=== PATIENT | female | born 1965 | race Two or more races ===

== ENCOUNTER 2017-08-29 14:46 | Inpatient (IN) | payer OTHER ==
[~2017-08-29] VITALS: Ht 160 cm; Wt 73.9 kg
[~2017-08-29 14:46] MED LIST: BENA20TA2 PO; INSU100V27 SQ; INSU3INS6 SQ; METF500T4 PO; SERT50TA12 PO; SIMV20TA6 PO; WARF5TAB77 PO
[2017-08-29] MEDS ORDERED: IV NS 0.9% 1,000 ML BAG IV ONE (15:00)
[2017-08-29] MEDS ORDERED: LEVOFLOXACIN 750 MG /D5W 150ML PIGGYBACK IV ONE (15:00)
[2017-08-29] MEDS ORDERED: VANCOMYCIN 1 GM in IV D5W 250 ML IV ONE (15:00)
[2017-08-29] MEDS ORDERED: LEVOFLOXACIN 750 MG /D5W 150ML 150 ML IV ONE (15:18)
[2017-08-29 15:35] LABS: BASOPHILS # (AUTO) 0.1 /CMM (0.0-0.2); BASOPHILS % (AUTO) 1.6 % (0.0-2.0); EOSINOPHILS % (AUTO) 0.4 % (0.0-6.0); HEMATOCRIT 33 % (33-45); HEMOGLOBIN 10.4 g/dL (11.5-14.8); LYMPHOCYTES # (AUTO) 0.6 /CMM (0.8-4.8); LYMPHOCYTES % (AUTO) 6.7 % (20.0-44.0); MEAN CORPUSCULAR HEMOGLOBIN 23 PG (26.0-33.0); MEAN CORPUSCULAR HGB CONC 31 g/dl (31.0-36.0); MEAN CORPUSCULAR VOLUME 74 fL (82-100); MONOCYTES # (AUTO) 0.3 /CMM (0.1-1.30); MONOCYTES % (AUTO) 3.2 % (2.0-12.0); NEUTROPHILS # (AUTO) 8.1 /CMM (1.8-8.9); NEUTROPHILS % (AUTO) 88.1 % (43.0-81.0); PLATELET COUNT (AUTO) 301 /CMM (150-450); RDW COEFFICIENT OF VARIATION 15.6 (11.5-15.0); RED BLOOD CELL COUNT(AUTO) 4.49 MIL/uL (4.0-5.2); WHITE BLOOD COUNT (AUTO) 9.1 K/uL (4.3-11.0)
[2017-08-29 15:45] LABS: CALCIUM, SERUM 9.5 mg/dL (8.5-10.1); POTASSIUM 4.5 mmol/L (3.5-5.1)
[2017-08-29 15:49] LABS: INR 1.03 (0.87-1.13); PROTHROMBIN TIME 10.7 SECS (9.5-12.7)
[2017-08-29 15:51] LABS: ALBUMIN 2.4 g/dL (3.4-5.0); BILIRUBIN,DIRECT 0.2 mg/dL (0.0-0.2); BILIRUBIN,TOTAL 0.5 mg/dL (0.2-1.0); TOTAL PROTEIN, SERUM 8.9 g/dL (6.4-8.2)
[2017-08-29] MEDS ORDERED: GABA-532 PO (16:21)
[2017-08-29] MEDS ORDERED: MAG HYDROX/AL HYDROX/SIMETH 30 ML UDC PO PRN (17:30)
[2017-08-29] MEDS ORDERED: ONDANSETRON HCL/PF 4 MG/2 ML VIAL IVP PRN (17:30)
[2017-08-29] MEDS ORDERED: ZOLPIDEM TARTRATE 5 MG TABLET PO PRN (17:30)
[2017-08-29] MEDS ORDERED: HYDROCODONE/APAP 5/325MG 1 EACH TABLET PO PRN (17:30)
[2017-08-29] MEDS ORDERED: MAGNESIUM HYDROXIDE 30 ML UDC PO PRN (17:30)
[2017-08-29] MEDS ORDERED: Z GUARD REMEDY 2 OZ OINT TP PRN (17:30)
[2017-08-29] MEDS ORDERED: DEXTROSE 50%-WATER 50 ML DISP.SYRIN IV PRN (17:30)
[2017-08-29] MEDS ORDERED: FEE PK DOSING 1 MIN EA MC ONE (17:54)
[2017-08-29 18:20] VITALS: BP 129/81
[2017-08-29] MEDS: BLOOD SUGAR DIAGNOSTIC 1 EACH STRIP VI SCH ×2 (18:21→21:16)
[2017-08-29] MEDS: INSULIN REGULAR, HUMAN 100 UNIT/ML 3 ML VIAL SQ PRN (18:57)
[2017-08-29] MEDS: IV NS 0.9% 1,000 ML IV PRN (18:58)
[2017-08-29] MEDS: ACETAMINOPHEN 325 MG TABLET PO PRN (18:59)
[2017-08-29] MEDS: HYDROCODONE/APAP 10/325MG 1 EA TABLET PO PRN (19:00)
[2017-08-29 20:26] VITALS: BP 130/58
[2017-08-29] MEDS: ENOXAPARIN SODIUM 80 MG/0.8 ML DISP.SYRIN SQ SCH (20:55)
[2017-08-29] MEDS: AZTREONAM 1 G in IV NS 0.9% 100 ML IV SCH (20:56)
[2017-08-29] MEDS ORDERED: LIDOCAINE 1% INJ 50 ML MDV IJ ONE ×2 (21:30→21:42)
[2017-08-29] MEDS: *INSULIN REGULAR(HUMULIN R)HUM 100 UNIT/ML VIAL SQ PRN (21:35)
[2017-08-29] MEDS ORDERED: INSULIN GLARGINE, 100 UNIT/ML CARTRIDGE SQ SCH (22:00)
[2017-08-29] MEDS ORDERED: INSULIN DETEMIR 100 UNIT/ML CARTRIDGE SQ ONE (23:00)
[2017-08-29] MEDS: INSULIN DETEMIR 100 UNIT/ML CARTRIDGE SQ SCH (23:09)
[2017-08-30] MEDS: VANCOMYCIN 1 GM in IV D5W 250 ML IV SCH ×2 (03:20→15:20)
[2017-08-30] MEDS: AZTREONAM 1 G in IV NS 0.9% 100 ML IV SCH ×2 (05:12→12:55)
[2017-08-30] MEDS: BLOOD SUGAR DIAGNOSTIC 1 EACH STRIP VI SCH ×4 (06:14→22:12)
[2017-08-30 07:02] LABS: BASOPHILS % (AUTO) 0.5 % (0.0-2.0); EOSINOPHILS % (AUTO) 0.4 % (0.0-6.0); HEMATOCRIT 28 % (33-45); HEMOGLOBIN 8.8 g/dL (11.5-14.8); LYMPHOCYTES # (AUTO) 0.6 /CMM (0.8-4.8); LYMPHOCYTES % (AUTO) 8.2 % (20.0-44.0); MEAN CORPUSCULAR HEMOGLOBIN 23 PG (26.0-33.0); MEAN CORPUSCULAR HGB CONC 31 g/dl (31.0-36.0); MEAN CORPUSCULAR VOLUME 76 fL (82-100); MONOCYTES # (AUTO) 0.3 /CMM (0.1-1.30); MONOCYTES % (AUTO) 3.5 % (2.0-12.0); NEUTROPHILS # (AUTO) 6.7 /CMM (1.8-8.9); NEUTROPHILS % (AUTO) 87.4 % (43.0-81.0); PLATELET COUNT (AUTO) 253 /CMM (150-450); RDW COEFFICIENT OF VARIATION 17.1 (11.5-15.0); RED BLOOD CELL COUNT(AUTO) 3.77 MIL/uL (4.0-5.2); WHITE BLOOD COUNT (AUTO) 7.7 K/uL (4.3-11.0)
[2017-08-30 07:20] LABS: INR 1.09 (0.87-1.13); PROTHROMBIN TIME 11.3 SECS (9.5-12.7)
[2017-08-30 07:24] LABS: CALCIUM, SERUM 8.3 mg/dL (8.5-10.1); CREATININE 0.9 mg/dL (0.6-1.3); PHOSPHORUS 2.9 mg/dL (2.5-4.9); POTASSIUM 4.1 mmol/L (3.5-5.1)
[2017-08-30 07:32] LABS: THYROID STIMULATING HORMONE 0.565 uIU/mL (0.358-3.74)
[2017-08-30 07:43] LABS: MAGNESIUM 1.2 mg/dL (1.8-2.4)
[2017-08-30 08:00] VITALS: BP 131/69
[2017-08-30] MEDS: ENOXAPARIN SODIUM 80 MG/0.8 ML DISP.SYRIN SQ SCH ×2 (09:00→20:15)
[2017-08-30] MEDS ORDERED: BUPIVACAINE 0.5 % PF 150 MG/30 ML VIAL ONE (09:31)
[2017-08-30] MEDS ORDERED: LIDOCAINE 1% INJ 50 ML MDV IJ ONE (09:31)
[2017-08-30] MEDS ORDERED: BACITRACIN 50000 UNITS/VIAL ONE (09:32)
[2017-08-30] MEDS ORDERED: FENTANYL PF 100MCG/2ML AMPUL ONE (09:32)
[2017-08-30] MEDS ORDERED: MIDAZOLAM HCL 2 MG/2ML VIAL ONE (09:33)
[2017-08-30] MEDS: Magnesium 1GM/D5W 100ML PREMIX 100 ML IV SCH ×4 (11:11→15:18)
[2017-08-30] MEDS: BENAZEPRIL HCL 20 MG TABLET PO SCH (11:19)
[2017-08-30] MEDS: GABAPENTIN 100 MG CAPSULE PO SCH ×3 (11:19→18:14)
[2017-08-30] MEDS: METFORMIN 500 MG TABLET PO SCH ×2 (11:19→18:14)
[2017-08-30] MEDS: SERTRALINE HCL 50 MG TABLET PO SCH (11:19)
[2017-08-30] MEDS: SIMVASTATIN 20 MG TABLET PO SCH (11:19)
[2017-08-30] MEDS: INSULIN REGULAR, HUMAN 100 UNIT/ML 3 ML VIAL SQ PRN ×2 (14:18→18:19)
[2017-08-30 16:00] VITALS: BP 129/70
[2017-08-30] MEDS: LACTOBACILLUS RHAMNOSUS GG 1 EACH CAP.SPRINK PO SCH (18:14)
[2017-08-30] MEDS: WARFARIN SODIUM 5 MG TABLET PO SCH (18:23)
[2017-08-30] MEDS: IV NS 0.9% 1,000 ML IV PRN (18:49)
[2017-08-30] MEDS: HYDROCODONE/APAP 10/325MG 1 EA TABLET PO PRN (18:59)
[2017-08-30 20:00] VITALS: BP 136/56
[2017-08-30] MEDS: MEROPENEM 1 G in IV NS 0.9% 100 ML IV SCH (20:14)
[2017-08-30] MEDS: ACETAMINOPHEN 325 MG TABLET PO PRN (20:14)
[2017-08-30] MEDS: *INSULIN REGULAR(HUMULIN R)HUM 100 UNIT/ML VIAL SQ PRN (22:16)
[2017-08-30] MEDS: INSULIN DETEMIR 100 UNIT/ML CARTRIDGE SQ SCH (22:16)
[2017-08-31] VITALS (10 sets, daily range): BP systolic 102–130; BP diastolic 50–90
[2017-08-31] MEDS: VANCOMYCIN 1 GM in IV D5W 250 ML IV SCH (03:18)
[2017-08-31] MEDS: HYDROCODONE/APAP 10/325MG 1 EA TABLET PO PRN ×5 (04:00→22:05)
[2017-08-31] MEDS: MEROPENEM 1 G in IV NS 0.9% 100 ML IV SCH (05:14)
[2017-08-31] MEDS: BLOOD SUGAR DIAGNOSTIC 1 EACH STRIP VI SCH ×4 (06:47→21:43)
[2017-08-31] MEDS: INSULIN REGULAR, HUMAN 100 UNIT/ML 3 ML VIAL SQ PRN ×2 (06:50→12:31)
[2017-08-31 08:09] LABS: CALCIUM, SERUM 7.9 mg/dL (8.5-10.1); CREATININE 0.7 mg/dL (0.6-1.3); POTASSIUM 3.3 mmol/L (3.5-5.1)
[2017-08-31 08:30] LABS: BASOPHILS % (AUTO) 0.3 % (0.0-2.0); EOSINOPHILS # (AUTO) 0.1 /CMM (0.0-0.7); HEMATOCRIT 22 % (33-45); LYMPHOCYTES # (AUTO) 0.9 /CMM (0.8-4.8); LYMPHOCYTES % (AUTO) 17.4 % (20.0-44.0); MEAN CORPUSCULAR HEMOGLOBIN 23 PG (26.0-33.0); MEAN CORPUSCULAR HGB CONC 31 g/dl (31.0-36.0); MEAN CORPUSCULAR VOLUME 75 fL (82-100); MONOCYTES # (AUTO) 0.4 /CMM (0.1-1.30); MONOCYTES % (AUTO) 7.2 % (2.0-12.0); NEUTROPHILS % (AUTO) 74.1 % (43.0-81.0); PLATELET COUNT (AUTO) 207 /CMM (150-450); RDW COEFFICIENT OF VARIATION 17.3 (11.5-15.0); RED BLOOD CELL COUNT(AUTO) 3.01 MIL/uL (4.0-5.2); WHITE BLOOD COUNT (AUTO) 5.4 K/uL (4.3-11.0)
[2017-08-31] MEDS ORDERED: POTASSIUM CHLORIDE 20 MEQ TAB.PRT.SR PO ONE (09:00)
[2017-08-31] MEDS: ENOXAPARIN SODIUM 80 MG/0.8 ML DISP.SYRIN SQ SCH (09:00)
[2017-08-31] MEDS: SERTRALINE HCL 50 MG TABLET PO SCH (09:04)
[2017-08-31] MEDS: GABAPENTIN 100 MG CAPSULE PO SCH ×3 (09:04→17:09)
[2017-08-31] MEDS: METFORMIN 500 MG TABLET PO SCH ×2 (09:04→17:08)
[2017-08-31] MEDS: LACTOBACILLUS RHAMNOSUS GG 1 EACH CAP.SPRINK PO SCH ×2 (09:04→17:09)
[2017-08-31] MEDS: SIMVASTATIN 20 MG TABLET PO SCH (09:04)
[2017-08-31] MEDS: BENAZEPRIL HCL 20 MG TABLET PO SCH (09:13)
[2017-08-31] MEDS ORDERED: POTASSIUM CHLORIDE 20 MEQ TAB.PRT.SR PO SCH (11:00)
[2017-08-31] MEDS ORDERED: VANCOMYCIN 1 GM in IV D5W 250 ML IV SCH (13:00)
[2017-08-31] MEDS ORDERED: CEFTRIAXONE 1 G VIAL IM SCH (15:00)
[2017-08-31] MEDS: IV NS 0.9% 1,000 ML IV PRN (15:15)
[2017-08-31] MEDS: METRONIDAZOLE 500MG/ NS 100ML 500 MG in PREMIX 1 EA IV SCH ×2 (15:59→22:04)
[2017-08-31] MEDS: SOD FERRIC GLUC 125 MG in IV NS 0.9% 100 ML IV SCH (16:26)
[2017-08-31] MEDS: WARFARIN SODIUM 5 MG TABLET PO SCH (17:00)
[2017-08-31] MEDS: CEFTRIAXONE 1 G in IV D5W 50 ML IV SCH (17:11)
[2017-08-31 17:35] LABS: BASOPHILS % (AUTO) 0.3 % (0.0-2.0); EOSINOPHILS # (AUTO) 0.1 /CMM (0.0-0.7); EOSINOPHILS % (AUTO) 1.5 % (0.0-6.0); HEMATOCRIT 34 % (33-45); HEMOGLOBIN 10.5 g/dL (11.5-14.8); LYMPHOCYTES # (AUTO) 1.2 /CMM (0.8-4.8); LYMPHOCYTES % (AUTO) 17.4 % (20.0-44.0); MEAN CORPUSCULAR HEMOGLOBIN 24 PG (26.0-33.0); MEAN CORPUSCULAR HGB CONC 31 g/dl (31.0-36.0); MEAN CORPUSCULAR VOLUME 77 fL (82-100); MONOCYTES # (AUTO) 0.4 /CMM (0.1-1.30); MONOCYTES % (AUTO) 5.5 % (2.0-12.0); NEUTROPHILS # (AUTO) 5.3 /CMM (1.8-8.9); NEUTROPHILS % (AUTO) 75.3 % (43.0-81.0); PLATELET COUNT (AUTO) 261 /CMM (150-450); RDW COEFFICIENT OF VARIATION 17.8 (11.5-15.0); RED BLOOD CELL COUNT(AUTO) 4.41 MIL/uL (4.0-5.2)
[2017-08-31] MEDS: ACETAMINOPHEN 325 MG TABLET PO PRN (19:58)
[2017-08-31] MEDS: *INSULIN REGULAR(HUMULIN R)HUM 100 UNIT/ML VIAL SQ PRN (21:47)
[2017-08-31] MEDS: INSULIN DETEMIR 100 UNIT/ML CARTRIDGE SQ SCH (21:50)
[2017-09-01] VITALS (9 sets, daily range): BP systolic 111–155; BP diastolic 50–80
[2017-09-01] MEDS: HYDROCODONE/APAP 10/325MG 1 EA TABLET PO PRN ×4 (02:52→21:22)
[2017-09-01] MEDS: IV NS 0.9% 1,000 ML IV PRN (04:24)
[2017-09-01] MEDS: METRONIDAZOLE 500MG/ NS 100ML 500 MG in PREMIX 1 EA IV SCH ×3 (04:51→21:27)
[2017-09-01] MEDS: BLOOD SUGAR DIAGNOSTIC 1 EACH STRIP VI SCH ×4 (06:15→21:31)
[2017-09-01] MEDS: INSULIN REGULAR, HUMAN 100 UNIT/ML 3 ML VIAL SQ PRN ×2 (06:36→12:21)
[2017-09-01 07:19] LABS: BASOPHILS % (AUTO) 0.2 % (0.0-2.0); EOSINOPHILS # (AUTO) 0.1 /CMM (0.0-0.7); EOSINOPHILS % (AUTO) 1.6 % (0.0-6.0); HEMATOCRIT 25 % (33-45); HEMOGLOBIN 7.9 g/dL (11.5-14.8); LYMPHOCYTES # (AUTO) 1.1 /CMM (0.8-4.8); LYMPHOCYTES % (AUTO) 19.6 % (20.0-44.0); MEAN CORPUSCULAR HEMOGLOBIN 24 PG (26.0-33.0); MEAN CORPUSCULAR HGB CONC 32 g/dl (31.0-36.0); MEAN CORPUSCULAR VOLUME 76 fL (82-100); MONOCYTES # (AUTO) 0.4 /CMM (0.1-1.30); MONOCYTES % (AUTO) 6.6 % (2.0-12.0); NEUTROPHILS # (AUTO) 4.1 /CMM (1.8-8.9); PLATELET COUNT (AUTO) 226 /CMM (150-450); RDW COEFFICIENT OF VARIATION 17.6 (11.5-15.0); RED BLOOD CELL COUNT(AUTO) 3.26 MIL/uL (4.0-5.2); WHITE BLOOD COUNT (AUTO) 5.7 K/uL (4.3-11.0)
[2017-09-01 07:34] LABS: ALBUMIN 1.5 g/dL (3.4-5.0); BILIRUBIN,TOTAL 0.3 mg/dL (0.2-1.0); CALCIUM, SERUM 8.2 mg/dL (8.5-10.1); CREATININE 0.6 mg/dL (0.6-1.3); MAGNESIUM 1.6 mg/dL (1.8-2.4); PHOSPHORUS 3.2 mg/dL (2.5-4.9); POTASSIUM 4.1 mmol/L (3.5-5.1); TOTAL PROTEIN, SERUM 6.6 g/dL (6.4-8.2)
[2017-09-01] MEDS ORDERED: Magnesium 1GM/D5W 100ML PREMIX PIGGYBACK IV ONE (08:00)
[2017-09-01] MEDS ORDERED: Magnesium 1GM/D5W 100ML PREMIX 100 ML IV SCH (08:30)
[2017-09-01] MEDS: BENAZEPRIL HCL 20 MG TABLET PO SCH (08:59)
[2017-09-01] MEDS: LACTOBACILLUS RHAMNOSUS GG 1 EACH CAP.SPRINK PO SCH ×2 (08:59→17:02)
[2017-09-01] MEDS: SERTRALINE HCL 50 MG TABLET PO SCH (08:59)
[2017-09-01] MEDS: METFORMIN 500 MG TABLET PO SCH ×2 (08:59→17:02)
[2017-09-01] MEDS: ASCORBIC ACID 500 MG TABLET PO SCH (08:59)
[2017-09-01] MEDS: SIMVASTATIN 20 MG TABLET PO SCH (08:59)
[2017-09-01] MEDS: GABAPENTIN 100 MG CAPSULE PO SCH ×3 (08:59→17:02)
[2017-09-01] MEDS: MULTIVITAMINS,THERAGRAN 1 UDTAB TABLET PO SCH (09:00)
[2017-09-01] MEDS: ENOXAPARIN SODIUM 80 MG/0.8 ML DISP.SYRIN SQ SCH ×2 (09:04→21:41)
[2017-09-01 12:22] LABS: INR 1.03 (0.87-1.13)
[2017-09-01 12:23] LABS: PROTHROMBIN TIME 10.7 SECS (9.5-12.7)
[2017-09-01] MEDS: SOD FERRIC GLUC 125 MG in IV NS 0.9% 100 ML IV SCH (13:13)
[2017-09-01] MEDS: CEFTRIAXONE 1 G in IV D5W 50 ML IV SCH (17:02)
[2017-09-01] MEDS: WARFARIN SODIUM 5 MG TABLET PO SCH (17:03)
[2017-09-01] MEDS: INSULIN DETEMIR 100 UNIT/ML CARTRIDGE SQ SCH (21:35)
[2017-09-02] MEDS: IV NS 0.9% 1,000 ML IV PRN (02:44)
[2017-09-02] MEDS: HYDROCODONE/APAP 10/325MG 1 EA TABLET PO PRN ×4 (04:31→17:37)
[2017-09-02] MEDS: METRONIDAZOLE 500MG/ NS 100ML 500 MG in PREMIX 1 EA IV SCH (04:32)
[2017-09-02] MEDS: BLOOD SUGAR DIAGNOSTIC 1 EACH STRIP VI SCH ×4 (06:16→21:27)
[2017-09-02] MEDS: INSULIN REGULAR, HUMAN 100 UNIT/ML 3 ML VIAL SQ PRN ×3 (06:21→17:26)
[2017-09-02 06:48] LABS: INR 1.26 (0.87-1.13); PROTHROMBIN TIME 13.1 SECS (9.5-12.7)
[2017-09-02 07:01] LABS: BASOPHILS % (AUTO) 0.4 % (0.0-2.0); EOSINOPHILS # (AUTO) 0.1 /CMM (0.0-0.7); EOSINOPHILS % (AUTO) 1.1 % (0.0-6.0); HEMATOCRIT 28 % (33-45); HEMOGLOBIN 8.8 g/dL (11.5-14.8); LYMPHOCYTES # (AUTO) 0.8 /CMM (0.8-4.8); LYMPHOCYTES % (AUTO) 13.3 % (20.0-44.0); MEAN CORPUSCULAR HEMOGLOBIN 25 PG (26.0-33.0); MEAN CORPUSCULAR HGB CONC 31 g/dl (31.0-36.0); MEAN CORPUSCULAR VOLUME 79 fL (82-100); MONOCYTES # (AUTO) 0.4 /CMM (0.1-1.30); NEUTROPHILS # (AUTO) 4.7 /CMM (1.8-8.9); NEUTROPHILS % (AUTO) 79.2 % (43.0-81.0); PLATELET COUNT (AUTO) 232 /CMM (150-450); RDW COEFFICIENT OF VARIATION 18.1 (11.5-15.0); RED BLOOD CELL COUNT(AUTO) 3.56 MIL/uL (4.0-5.2); WHITE BLOOD COUNT (AUTO) 5.9 K/uL (4.3-11.0)
[2017-09-02 07:02] LABS: CALCIUM, SERUM 8.3 mg/dL (8.5-10.1); CREATININE 0.6 mg/dL (0.6-1.3); POTASSIUM 3.5 mmol/L (3.5-5.1)
[2017-09-02 08:00] VITALS: BP 121/71
[2017-09-02 08:06] LABS: IMMUNOGLOBULIN A, SERUM 559 mg/dL (87-352); IMMUNOGLOBULIN G, SERUM 1309 mg/dL (700-1600); IMMUNOGLOBULIN M, SERUM 149 mg/dL (26-217)
[2017-09-02] MEDS: LACTOBACILLUS RHAMNOSUS GG 1 EACH CAP.SPRINK PO SCH ×2 (08:34→17:02)
[2017-09-02] MEDS: METFORMIN 500 MG TABLET PO SCH ×2 (08:34→17:02)
[2017-09-02] MEDS: ASCORBIC ACID 500 MG TABLET PO SCH (08:34)
[2017-09-02] MEDS: SERTRALINE HCL 50 MG TABLET PO SCH (08:35)
[2017-09-02] MEDS: SIMVASTATIN 20 MG TABLET PO SCH (08:35)
[2017-09-02] MEDS: GABAPENTIN 100 MG CAPSULE PO SCH ×3 (08:35→17:03)
[2017-09-02] MEDS: BENAZEPRIL HCL 20 MG TABLET PO SCH (08:35)
[2017-09-02] MEDS: ENOXAPARIN SODIUM 80 MG/0.8 ML DISP.SYRIN SQ SCH (08:55)
[2017-09-02] MEDS: MULTIVITAMINS,THERAGRAN 1 UDTAB TABLET PO SCH (08:56)
[2017-09-02] MEDS ORDERED: DAKINS HALF STRENGTH (0.25%) 480 ML BOTTLE TOP SCH (09:00)
[2017-09-02] MEDS: METRONIDAZOLE 500 MG TABLET PO SCH ×2 (12:51→21:30)
[2017-09-02] MEDS: SOD FERRIC GLUC 125 MG in IV NS 0.9% 100 ML IV SCH (13:23)
[2017-09-02] MEDS: CEFTRIAXONE 1 G in IV D5W 50 ML IV SCH (15:05)
[2017-09-02] MEDS: WARFARIN SODIUM 5 MG TABLET PO SCH (17:02)
[2017-09-02 20:00] VITALS: BP 106/60
[2017-09-03 09:13] LABS: HOMOCYSTEINE, PLASMA 8.9 umol/L (0.0-15.0)
[2017-09-03 11:13] LABS: *SPE A/G RATIO 0.5 (0.7-1.7); *SPE ALBUMIN 1.8 g/dL (2.9-4.4); *SPE ALPHA-1-GLOBULIN 0.4 g/dL (0.0-0.4); *SPE ALPHA-2-GLOBULIN 0.9 g/dL (0.4-1.0); *SPE BETA GLOBULIN 1.1 g/dL (0.7-1.3); *SPE GLOBULIN, TOTAL 3.6 g/dL (2.2-3.9); *SPE M-SPIKE Not Observed g/dL (Not Observed); *SPEGAMMA GLOBULIN 1.3 g/dL (0.4-1.8)
[2017-09-03 23:08] LABS: PROTEIN S ACTIVITY 105 % (63-140)
[2017-09-04 10:16] LABS: *CARD ANTI-CARDIOLIPIN AB IgG <9 GPL U/mL (0-14); *CARD ANTI-CARDIOLIPIN AB IgM <9 MPL U/mL (0-12)
[2017-09-05 00:09] LABS: *ANTITHROMBIN III AG 83 % (72-124); *PTT-LA 76.4 sec (0.0-51.9); *THROMBIN TIME 18.6 sec (0.0-23.0); *dPT CONFIRM RATIO 0.87 Ratio (0.00-1.40); *dRVVT 43.6 sec (0.0-47.0); PROTEIN C ACTIVITY 77 % (73-180)
[2017-09-05 04:40] LABS: *PTT-LA MIX 67.6 sec (0.0-48.9)
[2017-09-05 06:12] LABS: *INTERPRETATION Comment: (.)
[2017-09-06 16:33] LABS: *FACTOR II, DNA ANALYSIS Negative (.)
== END 2017-09-02 21:47 | disposition short-term general hospital (02) | DRG 616 ==
LOC: ER 14:47 → MED 16:57
PROVIDERS: ADMIT Nurse Practitioner Acute Care; ATTEND Nurse Practitioner Acute Care
PROC: 0QBQ0ZZ Excision of Right Toe Phalanx, Open Approach (ICD-10-PCS; 2017-08-29)
PROC: 0JBQ0ZZ Excision of Right Foot Subcutaneous Tissue and Fascia, Open Approach (ICD-10-PCS; 2017-08-30)
PROC: 0KBV0ZZ Excision of Right Foot Muscle, Open Approach (ICD-10-PCS; 2017-08-30)
PROC: 0QBQ0ZZ Excision of Right Toe Phalanx, Open Approach (ICD-10-PCS; 2017-08-30)
PROC: 0Y6R0Z0 Detachment at Right 2nd Toe, Complete, Open Approach (ICD-10-PCS; principal; 2017-08-31)
PROC: 30233N1 Transfusion of Nonautologous Red Blood Cells into Peripheral Vein, Percutaneous Approach (ICD-10-PCS; 2017-08-31)
PROC: B546ZZA Ultrasonography of Right Subclavian Vein, Guidance (ICD-10-PCS; 2017-08-31)
PROC: 05H633Z Insertion of Infusion Device into Left Subclavian Vein, Percutaneous Approach (ICD-10-PCS; 2017-08-31)
DX: E11.628 Type 2 diabetes mellitus with other skin complications (principal); E43 Unspecified severe protein-calorie malnutrition; A48.0 Gas gangrene; E11.65 Type 2 diabetes mellitus with hyperglycemia; E11.52 Type 2 diabetes mellitus with diabetic peripheral angiopathy with gangrene; L03.115 Cellulitis of right lower limb; E83.42 Hypomagnesemia; E87.1 Hypo-osmolality and hyponatremia; I48.91 Unspecified atrial fibrillation; E86.1 Hypovolemia; M86.9 Osteomyelitis, unspecified; I69.351 Hemiplegia and hemiparesis following cerebral infarction affecting right dominant side; E11.42 Type 2 diabetes mellitus with diabetic polyneuropathy; E11.621 Type 2 diabetes mellitus with foot ulcer; E11.69 Type 2 diabetes mellitus with other specified complication; L97.519 Non-pressure chronic ulcer of other part of right foot with unspecified severity; Z79.01 Long term (current) use of anticoagulants; Z79.4 Long term (current) use of insulin; Z91.14 Patient's other noncompliance with medication regimen; Z82.49 Family history of ischemic heart disease and other diseases of the circulatory system; Z88.0 Allergy status to penicillin; Z83.3 Family history of diabetes mellitus; Z79.899 Other long term (current) drug therapy; Z79.84 Long term (current) use of oral hypoglycemic drugs; L03.032 Cellulitis of left toe; L97.529 Non-pressure chronic ulcer of other part of left foot with unspecified severity; D50.9 Iron deficiency anemia, unspecified; E66.9 Obesity, unspecified; E78.5 Hyperlipidemia, unspecified; E87.6 Hypokalemia; I10 Essential (primary) hypertension; F32.9 Major depressive disorder, single episode, unspecified; Z68.28 Body mass index [BMI] 28.0-28.9, adult; F15.10 Other stimulant abuse, uncomplicated; N92.1 Excessive and frequent menstruation with irregular cycle; B95.1 Streptococcus, group B, as the cause of diseases classified elsewhere; B96.4 Proteus (mirabilis) (morganii) as the cause of diseases classified elsewhere; B96.1 Klebsiella pneumoniae [K. pneumoniae] as the cause of diseases classified elsewhere
CPT/HCPCS: 36415; 36569; 71010-TC; 73620-TC; 80048-TC; 80053-TC; 80061-TC; 80076-TC; 80202-TC; 81240; 81241; 82272-TC; 82306; 82728-TC; 82784; 82962-TC; 83090; 83540-TC; 83605-TC; 83735-TC; 84100-TC; 84155; 84165; 84439-TC; 84443-TC; 84703-TC; 85025-TC; 85300; 85301; 85303; 85610-TC; 85613; 85652-TC; 85670; 85705; 85730-TC; 85732; 86147; 86334; 86850-TC; 86921-TC; 87040-TC; 87070-TC; 87075-TC; 87081-TC; 87186-TC; 88305-TC; 88311-TC; A4216; A4606; A6253; A6402; A6403; C1751; G0480; J0696; J1650; J1815; J1956; J2185; J2250; J2405; J2916; J3010; J3370; J3475; J3490; J7030; J7050; J7060; P9016-BL; Z7610

== ENCOUNTER 2020-05-11 22:15 | Emergency (ER) | payer OTHER, MEDICAID ==
[~2020-05-11] VITALS: Ht 160 cm; Wt 81.6 kg
[~2020-05-11 22:15] MED LIST changes: -BENA20TA2 PO; +BENA20TA9 PO; +GABA-532 PO; +METF-440 PO; -METF500T4 PO; +SIMV-46 PO; -SIMV20TA6 PO; +WARF5TAB PO; -WARF5TAB77 PO
[2020-05-11 22:20] VITALS: BP 148/69
--- NOTE | 2020-05-11 22:33 | NUR ---
ALINA HUERTA PAC AT BED SIDE
[2020-05-11] MEDS ORDERED: SULFAMETH/TRIMETH 800/160 MG 1 UDTAB TABLET ONE (22:46)
[2020-05-11] MEDS ORDERED: CEPHALEXIN MONOHYDRATE 500 MG CAPSULE PO ONE ×2 (22:46→23:00)
--- NOTE | 2020-05-11 22:56 | NUR ---
PT WAS MEDICATED ORDERED . Patient discharged to home in stable condition. Rx and Written and verbal after care instructions given. Patient verbalizes understanding of instruction. pt was instructed to complete the ATB dose and f/u w/ PCP
[2020-05-11] MEDS ORDERED: SULFAMETH/TRIMETH 800/160 MG 1 UDTAB TABLET PO ONE (23:00)
== END 2020-05-11 22:57 | disposition home or self-care (01) ==
LOC: ER 22:15
DX: L02.11 Cutaneous abscess of neck (principal); E11.9 Type 2 diabetes mellitus without complications; E86.0 Dehydration; I10 Essential (primary) hypertension; Z98.890 Other specified postprocedural states; Z88.0 Allergy status to penicillin; Z79.899 Other long term (current) drug therapy; Z79.4 Long term (current) use of insulin; Z79.84 Long term (current) use of oral hypoglycemic drugs; Z79.01 Long term (current) use of anticoagulants; Z86.73 Personal history of transient ischemic attack (TIA), and cerebral infarction without residual deficits

== ENCOUNTER 2021-07-29 19:42 | Emergency (ER) | payer OTHER, MEDICAID ==
[~2021-07-29] VITALS: Ht 160 cm; Wt 81.6 kg
[2021-07-29 20:59] VITALS: BP 183/87
[2021-07-29] MEDS ORDERED: CEPHALEXIN MONOHYDRATE 500 MG CAPSULE PO ONE ×2 (22:00→22:03)
[2021-07-29] MEDS ORDERED: HYDROCODONE/APAP 5/325MG TABLET PO ONE (22:00)
[2021-07-29] MEDS ORDERED: SULFAMETH/TRIMETH 800/160 MG 1 UDTAB TABLET PO ONE (22:00)
[2021-07-29] MEDS ORDERED: SULFAMETH/TRIMETH 800/160 MG 1 UDTAB TABLET ONE (22:03)
[2021-07-29] MEDS ORDERED: HYDROCODONE/APAP 5/325MG TABLET ONE (22:03)
[2021-07-29] MEDS ORDERED: CEPH500C2 PO (22:13)
[2021-07-29] MEDS ORDERED: CLIN300C12 PO (22:13)
[2021-07-29] MEDS ORDERED: HYDR-4303 PO (22:13)
== END 2021-07-29 22:36 | disposition home or self-care (01) ==
LOC: ER 19:44
DX: L03.211 Cellulitis of face (principal); I10 Essential (primary) hypertension; E11.9 Type 2 diabetes mellitus without complications; Z86.73 Personal history of transient ischemic attack (TIA), and cerebral infarction without residual deficits; Z98.890 Other specified postprocedural states; Z88.0 Allergy status to penicillin; Z79.4 Long term (current) use of insulin; Z79.899 Other long term (current) drug therapy; Z79.01 Long term (current) use of anticoagulants

== ENCOUNTER 2022-01-28 02:33 | Emergency (ER) | payer OTHER ==
[~2022-01-28] VITALS: Ht 165.1 cm; Wt 57.6 kg
[~2022-01-28 02:33] MED LIST changes: +CEPH500C2 PO; +CLIN300C12 PO; +HYDR-4303 PO
[2022-01-28 03:15] VITALS: BP 145/85
--- NOTE | 2022-01-28 03:15 | NUR ---
TO ER BED 2. BIBS C/O R [place] TOR[place] WOUND. WOUND IS OPEN TO AIR. PUS NOTED. PT DENIES PAIN. AWAITING MD BANDA
[2022-01-28] MEDS ORDERED: CLIN300C12 PO (03:23)
--- NOTE | 2022-01-28 03:24 | NUR ---
[employer]PERVISOR AT BEDSIDE FOR WOUND CARE
--- NOTE | 2022-01-28 03:31 | NUR ---
Patient does not wish to proceed with medical care recommended by Dr. José. Patient given information related to possible complications, up to and including , which could occur as a result of leaving the hospital at this time. Patient verbalizes understanding of risks involved due to leaving against medical advice. Patient has signed AMA form.
== END 2022-01-28 03:33 | disposition left against medical advice (07) ==
LOC: ER 02:38
DX: E11.622 Type 2 diabetes mellitus with other skin ulcer (principal); L97.818 Non-pressure chronic ulcer of other part of right lower leg with other specified severity; L03.115 Cellulitis of right lower limb; I10 Essential (primary) hypertension; E11.9 Type 2 diabetes mellitus without complications; Z86.73 Personal history of transient ischemic attack (TIA), and cerebral infarction without residual deficits; Z98.891 History of uterine scar from previous surgery; Z94.5 Skin transplant status; Z88.0 Allergy status to penicillin; Z79.899 Other long term (current) drug therapy

== ENCOUNTER 2024-01-02 11:08 | Emergency (ER) | payer OTHER, MEDICAID ==
[~2024-01-02] VITALS: Ht 160 cm; Wt 90.7 kg
[2024-01-02] MEDS ORDERED: CLINDAMYCIN HCL 150 MG CAPSULE ONE (11:53)
[2024-01-02] MEDS: CLINDAMYCIN HCL 150 MG CAPSULE PO ONE (11:58)
[2024-01-02] MEDS ORDERED: CLIN300C12 PO (12:30)
[2024-01-02 12:47] VITALS: BP 120/78; TEMP 98; O2SAT 98
== END 2024-01-02 12:47 | disposition home or self-care (01) ==
LOC: ER 11:25
DX: L03.115 Cellulitis of right lower limb (principal); I10 Essential (primary) hypertension; E11.9 Type 2 diabetes mellitus without complications; Z88.0 Allergy status to penicillin; Z79.4 Long term (current) use of insulin; Z79.84 Long term (current) use of oral hypoglycemic drugs; Z79.899 Other long term (current) drug therapy

== ENCOUNTER 2024-02-11 21:19 | Inpatient (IN) | payer BC, OTHER ==
[~2024-02-11] VITALS: Ht 160 cm; Wt 78.5 kg
[2024-02-11 22:07] LABS: BASOPHILS % (AUTO) 0.2 % (0.0-2.0); EOSINOPHILS % (AUTO) 0.1 % (0.0-6.0); HEMATOCRIT 38 % (33-45); HEMOGLOBIN 12.2 g/dL (11.5-14.8); LYMPHOCYTES % (AUTO) 8.6 % (20.0-44.0); MEAN CORPUSCULAR HEMOGLOBIN 28 PG (26.0-33.0); MEAN CORPUSCULAR HGB CONC 33 g/dl (31.0-36.0); MEAN CORPUSCULAR VOLUME 86 fL (82-100); MONOCYTES # (AUTO) 0.5 K/uL (0.1-1.30); MONOCYTES % (AUTO) 4.8 % (2.0-12.0); NEUTROPHILS % (AUTO) 86.3 % (43.0-81.0); PLATELET COUNT (AUTO) 332 K/uL (150-450); RED BLOOD CELL COUNT(AUTO) 4.36 MIL/uL (4.0-5.2); RED CELL DISTRIBUTION WIDTH 14.1 % (11.5-15.0); WHITE BLOOD COUNT (AUTO) 11.5 K/uL (4.3-11.0)
[2024-02-11 22:21] LABS: INR 1.13 (0.91-1.10); PARTIAL THROMBOPLASTIN TIME 33.4 SEC (24.3-34.3); PROTHROMBIN TIME 11.9 SECS (9.2-11.1)
[2024-02-11 22:23] LABS: ALANINE AMINOTRANSFERASE 24 U/L (12-78); ALKALINE PHOSPHATASE 158 U/L (46-116); ASPARTATE AMINOTRANSFERASE 70 U/L (15-37); BILIRUBIN,DIRECT 0.3 mg/dL (0.0-0.2); BILIRUBIN,TOTAL 0.7 mg/dL (0.2-1.0); CALCIUM, SERUM 9.3 mg/dL (8.5-10.1); TOTAL PROTEIN, SERUM 9.1 g/dL (6.4-8.2)
[2024-02-11 22:27] LABS: LACTIC ACID 1.2 mmol/L (0.4-2.0)
[2024-02-11 22:29] LABS: ALBUMIN 2.8 g/dL (3.4-5.0)
[2024-02-11] MEDS ORDERED: VANCOMYCIN 1 GM /D5W 250 ML PB IV ONE (22:30)
[2024-02-11] MEDS: VANCOMYCIN HCL 1 GM in IV D5W 260 ML IV ONE (22:30)
[2024-02-11 22:31] LABS: CHLORIDE 94 mmol/L (98-107); POTASSIUM 6.2 mmol/L (3.5-5.1); SODIUM SERUM 132 mmol/L (136-145)
[2024-02-11 22:32] LABS: CARBON DIOXIDE 20 mmol/L (21-32); CREATININE 11.2 mg/dL (0.6-1.3); GLUCOSE 264 mg/dL (74-106); UREA NITROGEN, BLOOD 119 mg/dL (7-18)
[2024-02-11] MEDS ORDERED: SODIUM BICARBONATE SYR 50 MEQ/50 ML DISP.SYRIN ONE (22:46)
[2024-02-11] MEDS ORDERED: Calcium Gluconate 0.465 MEQ/ML VIAL IV ONE (22:46)
[2024-02-11] MEDS ORDERED: SODIUM POLYSTYRENE SULFONATE 15 G/60 ML BOTTLE ONE (22:46)
[2024-02-11] MEDS ORDERED: DEXTROSE 50%-WATER 50 ML DISP.SYRIN ONE (22:47)
[2024-02-11] MEDS ORDERED: INSULIN REGULAR, HUMAN 100 UNIT/ML 10 ML VIAL ONE (22:47)
[2024-02-11] MEDS: INSULIN REGULAR, HUMAN 100 UNIT/ML 10 ML VIAL IV ONE (22:55)
[2024-02-11] MEDS: Calcium Gluconate 1GM/10ML 4.65 MEQ in IV NS 0.9% 100 ML IV ONE (23:06)
[2024-02-11] MEDS: DEXTROSE 50%-WATER 50 ML DISP.SYRIN IVP ONE (23:06)
[2024-02-11] MEDS: SODIUM BICARBONATE SYR 50 MEQ/50 ML DISP.SYRIN IV ONE (23:06)
[2024-02-11] MEDS: SODIUM POLYSTYRENE SULFONATE 15 G/60 ML BOTTLE PO ONE (23:07)
[2024-02-12] MEDS ORDERED: QUET50TA PO (01:17)
[2024-02-12] MEDS ORDERED: FENO48TA6 PO (01:17)
[2024-02-12] MEDS ORDERED: APIX2.5T PO (01:17)
[2024-02-12] MEDS: IV NS 0.9% 1,000 ML IV ONE ×3 (01:53→03:57)
[2024-02-12] MEDS ORDERED: SODIUM POLYSTYRENE SULFONATE 15 G/60 ML BOTTLE PO ONE (03:30)
[2024-02-12] MEDS: INSULIN GLARGINE, 100 UNIT/ML CARTRIDGE SQ ONE ×2 (03:30→08:31)
[2024-02-12] MEDS ORDERED: CLONIDINE HCL 0.1 MG TABLET PO PRN (03:30)
[2024-02-12] MEDS ORDERED: DEXTROSE 50%-WATER 50 ML DISP.SYRIN IV PRN (03:30)
[2024-02-12 04:00] VITALS: BP 129/77; TEMP 99; O2SAT 96
[2024-02-12] MEDS: SODIUM POLYSTYRENE SULFONATE 15 G/60 ML BOTTLE PO ONE (05:11)
[2024-02-12] MEDS: ACETAMINOPHEN 325 MG TABLET PO PRN (05:25)
[2024-02-12 07:57] LABS: BASOPHILS % (AUTO) 0.2 % (0.0-2.0); HEMATOCRIT 36 % (33-45); HEMOGLOBIN 11.9 g/dL (11.5-14.8); LYMPHOCYTES # (AUTO) 1.1 K/uL (0.8-4.8); LYMPHOCYTES % (AUTO) 10.6 % (20.0-44.0); MEAN CORPUSCULAR HEMOGLOBIN 29 PG (26.0-33.0); MEAN CORPUSCULAR HGB CONC 33 g/dl (31.0-36.0); MEAN CORPUSCULAR VOLUME 86 fL (82-100); MONOCYTES # (AUTO) 0.8 K/uL (0.1-1.30); MONOCYTES % (AUTO) 7.8 % (2.0-12.0); NEUTROPHILS # (AUTO) 8.8 K/uL (1.8-8.9); NEUTROPHILS % (AUTO) 81.4 % (43.0-81.0); PLATELET COUNT (AUTO) 317 K/uL (150-450); RED BLOOD CELL COUNT(AUTO) 4.17 MIL/uL (4.0-5.2); WHITE BLOOD COUNT (AUTO) 10.8 K/uL (4.3-11.0)
[2024-02-12 08:00] VITALS: BP 121/59; TEMP 98.3; O2SAT 93
[2024-02-12 08:02] LABS: CALCIUM, SERUM 8.9 mg/dL (8.5-10.1); POTASSIUM 4.6 mmol/L (3.5-5.1)
[2024-02-12] MEDS: BLOOD SUGAR DIAGNOSTIC 1 EACH STRIP VI SCH (08:26)
[2024-02-12] MEDS: INSULIN REGULAR, HUMAN 100 UNIT/ML 3 ML VIAL SQ PRN (08:29)
[2024-02-12] MEDS: CEFEPIME 1 GM in IV D5W 50 ML IV SCH (08:32)
[2024-02-12 08:41] LABS: CREATININE 9.7 mg/dL (0.6-1.3)
[2024-02-12 09:06] LABS: THYROID STIMULATING HORMONE 0.356 uIU/mL (0.358-3.74)
[2024-02-12] MEDS: Fenofibrate 48 MG TABLET PO SCH (10:22)
[2024-02-12] MEDS: HEPARIN SODIUM, PORCINE 5000 UNITS/1 ML VIAL SQ SCH (10:24)
[2024-02-12 12:00] VITALS: BP 129/81; TEMP 98.1; O2SAT 96
[2024-02-12 16:00] VITALS: BP 111/53; TEMP 98.8; O2SAT 96
[2024-02-12 18:49] LABS: BASOPHILS % (AUTO) 0.3 % (0.0-2.0); EOSINOPHILS % (AUTO) 0.5 % (0.0-6.0); HEMATOCRIT 33 % (33-45); HEMOGLOBIN 11.1 g/dL (11.5-14.8); LYMPHOCYTES % (AUTO) 10.3 % (20.0-44.0); MEAN CORPUSCULAR HEMOGLOBIN 28 PG (26.0-33.0); MEAN CORPUSCULAR HGB CONC 33 g/dl (31.0-36.0); MEAN CORPUSCULAR VOLUME 85 fL (82-100); MONOCYTES # (AUTO) 0.6 K/uL (0.1-1.30); NEUTROPHILS # (AUTO) 7.7 K/uL (1.8-8.9); NEUTROPHILS % (AUTO) 82.9 % (43.0-81.0); PLATELET COUNT (AUTO) 284 K/uL (150-450); RED BLOOD CELL COUNT(AUTO) 3.93 MIL/uL (4.0-5.2); RED CELL DISTRIBUTION WIDTH 14.3 % (11.5-15.0); WHITE BLOOD COUNT (AUTO) 9.3 K/uL (4.3-11.0)
[2024-02-12 19:18] LABS: ALBUMIN 2.2 g/dL (3.4-5.0); BILIRUBIN,TOTAL 0.5 mg/dL (0.2-1.0); CALCIUM, SERUM 8.5 mg/dL (8.5-10.1); MAGNESIUM 2.4 mg/dL (1.8-2.4); PHOSPHORUS 7.4 mg/dL (2.5-4.9); POTASSIUM 3.8 mmol/L (3.5-5.1); TOTAL PROTEIN, SERUM 7.7 g/dL (6.4-8.2)
[2024-02-12 19:27] LABS: CREATININE 8.4 mg/dL (0.6-1.3)
[2024-02-12 20:00] VITALS: BP 115/64; TEMP 97.9; O2SAT 96
[2024-02-12] MEDS: *INSULIN REGULAR(HUMULIN R)HUM 100 UNIT/ML VIAL SQ PRN (22:25)
[2024-02-13] VITALS: BP 123/65; TEMP 97.4; O2SAT 95
[2024-02-13 04:00] VITALS: BP 114/70; TEMP 98; O2SAT 95
[2024-02-13 07:07] LABS: BASOPHILS % (AUTO) 0.1 % (0.0-2.0); EOSINOPHILS % (AUTO) 0.3 % (0.0-6.0); HEMATOCRIT 31 % (33-45); HEMOGLOBIN 10.1 g/dL (11.5-14.8); LYMPHOCYTES # (AUTO) 1.3 K/uL (0.8-4.8); MEAN CORPUSCULAR HEMOGLOBIN 28 PG (26.0-33.0); MEAN CORPUSCULAR HGB CONC 32 g/dl (31.0-36.0); MEAN CORPUSCULAR VOLUME 86 fL (82-100); MONOCYTES # (AUTO) 0.5 K/uL (0.1-1.30); MONOCYTES % (AUTO) 4.9 % (2.0-12.0); NEUTROPHILS # (AUTO) 8.3 K/uL (1.8-8.9); NEUTROPHILS % (AUTO) 81.7 % (43.0-81.0); PLATELET COUNT (AUTO) 300 K/uL (150-450); RED BLOOD CELL COUNT(AUTO) 3.63 MIL/uL (4.0-5.2); RED CELL DISTRIBUTION WIDTH 14.2 % (11.5-15.0); WHITE BLOOD COUNT (AUTO) 10.1 K/uL (4.3-11.0)
[2024-02-13 07:18] LABS: APPEARANCE,URINE TURBID (CLEAR); BILIRUBIN,URINE NEGATIVE (NEGATIVE); BLOOD, URINE 3+ Ery/uL (NEGATIVE); COLOR,URINE YELLOW (YELLOW); KETONES,URINE NEGATIVE (NEGATIVE); LEUKOCYTE ESTERASE ,URINE 3+ (NEGATIVE); NITRITE, URINE NEGATIVE (NEGATIVE); PROTEIN,URINE 2+ mg/dl (NEGATIVE); UGLUCOSE 1+ mg/dL (NEGATIVE); UROBILINOGEN,URINE 0.2 EU/dL (0.2)
[2024-02-13 07:32] LABS: ALBUMIN 1.9 g/dL (3.4-5.0); BILIRUBIN,TOTAL 0.4 mg/dL (0.2-1.0); CALCIUM, SERUM 8.3 mg/dL (8.5-10.1); CREATININE 7.3 mg/dL (0.6-1.3); MAGNESIUM 2.3 mg/dL (1.8-2.4); PHOSPHORUS 7.5 mg/dL (2.5-4.9); POTASSIUM 3.7 mmol/L (3.5-5.1); TOTAL PROTEIN, SERUM 7.2 g/dL (6.4-8.2)
[2024-02-13 07:50] LABS: CREATININE, URINE 83.1 MG/DL (30.0-125.0); URINE TOTAL PROTEIN 163.8 mg/dL (0-11.9)
[2024-02-13 08:00] VITALS: BP 96/43; TEMP 98.2; O2SAT 95
[2024-02-13 08:07] LABS: ADD URINE CULTURE YES; BACTERIA,URINE 2+ /HPF (None Seen); RBC,URINE 21-50 /HPF (0-2)
[2024-02-13 08:10] LABS: COARSE GRANULAR CASTS,URINE Few /LPF (None Seen)
[2024-02-13 08:11] LABS: WBC,URINE 81-100 /HPF (0-3)
[2024-02-13 08:12] LABS: URIC ACID CRYSTALS,URINE Few /HPF (None Seen)
[2024-02-13 08:17] LABS: BARBITURATE, URINE NEGATIVE (NEGATIVE); BENZODIAZEPINE, URINE NEGATIVE (NEGATIVE); CANNABINOID, URINE NEGATIVE (NEGATIVE); COCCAINE, URINE NEGATIVE (NEGATIVE); PHENCYCLIDINE SCREEN,URINE NEGATIVE (NEGATIVE)
[2024-02-13 08:22] LABS: AMPHETAMINE, URINE POSITIVE (NEGATIVE); OPIATE, URINE POSITIVE (NEGATIVE)
[2024-02-13 08:57] LABS: EOSINOPHIL,URINE None Seen
[2024-02-13] MEDS: Z GUARD REMEDY 4 OZ OINT TP SCH (10:18)
[2024-02-13] MEDS: THERAHONEY GEL 1.5 OZ TUBE TP SCH (10:19)
[2024-02-13 12:00] VITALS: BP 120/68; TEMP 97.9; O2SAT 98
[2024-02-13] MEDS: HYDROCODONE/APAP 5/325MG TABLET PO PRN (15:53)
[2024-02-13 16:00] VITALS: BP 128/77; TEMP 98.2; O2SAT 96
[2024-02-13 20:00] VITALS: BP 136/74; TEMP 99; O2SAT 97
[2024-02-13] MEDS: INSULIN GLARGINE, 100 UNIT/ML CARTRIDGE SQ SCH (21:40)
[2024-02-14] VITALS: BP 159/79; TEMP 98.8; O2SAT 97
[2024-02-14 04:00] VITALS: BP 129/83; TEMP 98.7; O2SAT 98
[2024-02-14 07:41] LABS: CALCIUM, SERUM 8.9 mg/dL (8.5-10.1); CREATININE 4.9 mg/dL (0.6-1.3); POTASSIUM 3.1 mmol/L (3.5-5.1)
[2024-02-14] MEDS ORDERED: POTASSIUM CL. PREMIX PERIPHER. 50 ML IV SCH (08:00)
[2024-02-14 08:10] LABS: PTH, INTACT 132 pg/mL (15-65)
[2024-02-14] MEDS: POTASSIUM CHLORIDE 20 MEQ TAB.PRT.SR PO ONE ×2 (08:49)
[2024-02-14] MEDS: Z GUARD REMEDY 4 OZ OINT TP PRN (08:58)
[2024-02-14 09:42] VITALS: BP 104/77; TEMP 98.7; O2SAT 98
[2024-02-14] MEDS: VANCOMYCIN 1 GM in IV D5W 250ml IV SCH (11:36)
[2024-02-14 12:00] VITALS: BP 105/43; TEMP 97.7; O2SAT 94
[2024-02-14] MEDS ORDERED: VANCOMYCIN 750 MG in IV D5W 250 ML IV SCH ×2 (12:00→23:00)
[2024-02-14 12:07] LABS: *SPE A/G RATIO 0.4 (0.7-1.7); *SPE ALBUMIN 1.9 g/dL (2.9-4.4); *SPE ALPHA-1-GLOBULIN 0.4 g/dL (0.0-0.4); *SPE BETA GLOBULIN 2.2 g/dL (0.7-1.3); *SPE GLOBULIN, TOTAL 4.4 g/dL (2.2-3.9); *SPE M-SPIKE 1.5 g/dL (Not Observed); *SPE PROTEIN TOTAL 6.3 g/dL (6.0-8.5); *SPEGAMMA GLOBULIN 0.8 g/dL (0.4-1.8)
[2024-02-14 14:31] LABS: CALCIUM, SERUM 9.2 mg/dL (8.5-10.1); CREATININE 4.7 mg/dL (0.6-1.3); POTASSIUM 3.9 mmol/L (3.5-5.1)
[2024-02-14 16:00] VITALS: BP 105/74; TEMP 98.4; O2SAT 94
== END 2024-02-14 17:20 | disposition home health service (06) | DRG 987 ==
LOC: ER 21:20 → TELE1 02-12 01:05 → TELE-TD 02-12 02:05 → MEDSG1 02-14 11:06
PROVIDERS: ADMIT Internal Medicine; ATTEND Internal Medicine
PROC: 0QBN0ZZ Excision of Right Metatarsal, Open Approach (ICD-10-PCS; principal; 2024-02-14)
DX: N17.9 Acute kidney failure, unspecified (principal); G93.41 Metabolic encephalopathy; L03.115 Cellulitis of right lower limb; I69.351 Hemiplegia and hemiparesis following cerebral infarction affecting right dominant side; N39.0 Urinary tract infection, site not specified; I12.9 Hypertensive chronic kidney disease with stage 1 through stage 4 chronic kidney disease, or unspecified chronic kidney disease; E11.22 Type 2 diabetes mellitus with diabetic chronic kidney disease; N18.9 Chronic kidney disease, unspecified; E86.0 Dehydration; E11.621 Type 2 diabetes mellitus with foot ulcer; L97.514 Non-pressure chronic ulcer of other part of right foot with necrosis of bone; E11.51 Type 2 diabetes mellitus with diabetic peripheral angiopathy without gangrene; E11.42 Type 2 diabetes mellitus with diabetic polyneuropathy; Z88.0 Allergy status to penicillin; Z79.4 Long term (current) use of insulin; Z79.84 Long term (current) use of oral hypoglycemic drugs; Z79.01 Long term (current) use of anticoagulants; F32.A Depression, unspecified; Z79.899 Other long term (current) drug therapy; E78.5 Hyperlipidemia, unspecified; E87.5 Hyperkalemia; Z89.422 Acquired absence of other left toe(s); Z89.421 Acquired absence of other right toe(s); F15.10 Other stimulant abuse, uncomplicated; Z86.718 Personal history of other venous thrombosis and embolism
CPT/HCPCS: 36415; 71045-TC; 73630-TC; 76770-TC; 80048-TC; 80053-TC; 80076-TC; 80202-TC; 81001; 82010-TC; 82550-TC; 82553; 82570-TC; 82962-TC; 83605-TC; 83735-TC; 83970; 84100-TC; 84155; 84165; 84300-TC; 84443-TC; 84484-TC; 85025-TC; 85730-TC; 87040-TC; 87086-TC; 93926-TC; A6253; A6403; G0378; J0610; J0692; J1644; J1815; J3370; J3371; J3490; J7030; J7050; J7060